=== PATIENT | male | born 2000 | race Caucasian/White ===

== ENCOUNTER 2020-08-02 02:22 | Emergency (ER) | payer OTHER ==
[~2020-08-02] VITALS: Ht 175.3 cm; Wt 72.6 kg
[2020-08-02 02:25] VITALS: BP 153/91; Ht 175.3 cm; Wt 72.6 kg
== END 2020-08-02 02:49 | disposition other institution (70) ==
LOC: ED 02:22
DX: Z02.89 Encounter for other administrative examinations (principal)